=== PATIENT | female | born 1950 | race Caucasian/White ===

== ENCOUNTER 2021-07-11 11:39 | Emergency (ER) | payer MEDICARE, SELFPAY ==
[2021-07-11 11:56] VITALS: BP 129/78; PULSE 92; RESP 12; TEMP 36.2; O2SAT 100
--- NOTE | 2021-07-11 12:23 | ED.URI ---
HPI - URI/Sore Throat General Chief Complaint: Upper Respiratory Infection Stated Complaint: sinus pressure/runny nose Time Seen by Provider: 07/11/21 12:26 Source: patient and RN notes reviewed Mode of arrival: ambulatory Limitations: no limitations History of Present Illness HPI Narrative: 71-year-old female presents with concern for 1 week history of sinus congestion, drainage, right facial pressure and pain, right ear pain. Reports she has been using Flonase and Claritin with little relief. She reports occasional cough, denies body aches, chills, sweats, fever, nausea, vomiting, diarrhea, shortness of breath. Reports she has been vaccinated for Covid and has had a booster. MD elicited complaint: nasal congestion Related Data Home Medications Medication Instructions Recorded Confirmed fludrocortisone mg 07/11/21 levothyroxine 07/11/21 prednisone 07/11/21 prednisone 07/11/21 simvastatin mg 07/11/21 Allergies Allergy/AdvReac Type Severity Reaction Status Date / Time codeine Allergy Unknown HALLUCINATI Verified 07/11/21 11:56 ONS Contrast Media Allergy Unknown ITCHY Uncoded 07/11/21 11:56 Review of Systems Review of Systems: CONSTITUTIONAL: Denies malaise, chills, sweats, or fever. EYES: Denies visual changes, redness, or discharge. ENT: Reports rhinorrhea, congestion, sinus pain, otalgia and scratchy throat. CARDIOVASCULAR: Denies chest pain, palpitations, or edema. RESPIRATORY: Reports cough. Denies dyspnea. GASTROINTESTINAL: Denies abdominal pain, nausea, vomiting, diarrhea SKIN: Denies rash or itching. MUSCULOSKELETAL: Denies myalgia. NEUROLOGIC: Denies headache. All systems reviewed & are unremarkable except as noted in HPI and below PMFSH Comments At time of signature, agree with nursing past medical, surgical, social and family history. There is no relevant family history pertinent to the presenting complaint Exam Narrative: GENERAL: Well-appearing, well-nourished, and in no acute distress. HEAD: Normocephalic EYES: PERRLA, conjunctivae clear ENT: Nares clear, turbinates erythematous, sinus tenderness. Mucous membranes moist. TM pearly michele with sharp light reflex bilaterally; no tragal tenderness. Oropharynx not erythematous without lesions. Tonsils not enlarged and without exudate, no drooling, no hoarseness, no trismus, uvula midline. NECK: Supple. No lymphadenopathy CHEST: Clear to auscultation, breath sounds equal. No wheezing, rhonchi, rales, or stridor. No respiratory distress, speaks in full sentences. HEART: Regular rate and rhythm. No murmur heard. SKIN: Warm, dry, no rash. NEURO: Alert and oriented x3. PSYCH: Normal mood and affect Course Course Emergency Course: Patient is aware of diagnosis, understands and agrees to treatment plan. Anticipatory guidance given. Patient agrees to follow-up as directed and is aware of reasons to seek care at the emergency department. Portions of this record may have been created with voice recognition software Vital Signs Vital signs: Vital Signs Temperature 97.1 F L 07/11/21 11:56 Pulse Rate 92 07/11/21 11:56 Respiratory Rate 12 07/11/21 11:56 Blood Pressure 129/78 07/11/21 11:56 Pulse Oximetry 100 07/11/21 11:56 Temperature 97.1 F L 07/11/21 11:56 Pulse Rate 92 07/11/21 11:56 Respiratory Rate 12 07/11/21 11:56 Blood Pressure 129/78 07/11/21 11:56 Pulse Oximetry 100 07/11/21 11:56 Reviewed. MDM - URI/Sore Throat MDM Narrative Medical decision making narrative: Differential diagnosis considered: Driscoll virus, strep pharyngitis, allergic rhinitis, upper respiratory tract infection, sinusitis, rhinosinusitis, nasopharyngitis. viral pharyngitis, otitis media, otitis externa, pneumonia, bronchitis, viral cough syndrome, viral syndrome, and influenza. Exam findings show no acute concerns or changes; patient is non-toxic appearing and is in no distress. Patient is appropriate for outpatient treatment and follow-u
== END 2021-07-11 12:44 | disposition home or self-care (01) ==
PROVIDERS: Emergency Provider Nurse Practitioner; PCP Internal Medicine
DX: J01.90 Acute sinusitis, unspecified (principal); E78.00 Pure hypercholesterolemia, unspecified; Z96.653 Presence of artificial knee joint, bilateral; Z96.641 Presence of right artificial hip joint; E03.9 Hypothyroidism, unspecified; E27.1 Primary adrenocortical insufficiency
CPT/HCPCS: 99211; G0463

== ENCOUNTER → 2021-09-24 13:28 | Outpatient (CLI) | payer MEDICARE, SELFPAY ==
--- NOTE | ~2021-09-24 | MM_ITS ---
EXAMINATION: MM screening ap[facility] BI w dorys HISTORY: Screening TECHNIQUE: Craniocaudal and mediolateral oblique 3-D tomosynthesis images were obtained and synthetic 2-D images were generated. CAD analysis was submitted and interpreted. COMPARISON: 07/30/2019 BREAST PARENCHYMAL COMPOSITION: The breasts are heterogeneously dense, which may obscure small masses . FINDINGS: There is no evidence of suspicious mass, calcification, or architectural distortion to sugg est malignancy in either breast. There has been no suspicious interval change. IMPRESSION: 1. No mammographic evidence of malignancy. 2. Recommend routine screening mammography in one year. BI-RADS Category 1: Negative Reviewed, dictated and finalized at location A. RAM FACILITATOR
--- NOTE | ~2021-09-24 | DEXA_ITS ---
Bone Density Report Name: ABDON GOODSON Age: 71 Sex: Female Ethnicity: White Date of : 1950 Indication: postmenopausal; screening for osteoporosis; history of glucocorticoids; Referring Provider: Joon, Tonja Narayanan Study: Bone densitometry was performed. Exam Date: September 24, 2021 Accession number: [id number] Bone Density: Region BMD T-score Z-score Classification AP Spine (L1-L4) 0.984 -0.6 1.5 Normal Femoral Neck (Left) 0.742 -1.0 0.8 Normal Total Hip (Left) 0.821 -1.0 0.5 Normal World Health Organization criteria for BMD impression classify patients as: Normal (T-score at or above -1.0), Osteopenia (T-score between -1.0 and -2.5), or Osteoporosis (T-score at or below -2.5). 10-year Fracture Risk: FRAX not reported because: All T-scores for Spine Total, Hip Total, Femoral Neck at or above -1.0 Previous Exams: Region Exam Age BMD T-score BMD Change BMD Change Date g/cm2 vs Baseline vs Previous AP Spine(L1-L4) 09/24/2021 71 0.984 -0.6 0.003 0.036* 06/10/2017 66 0.948 -0.9 -0.033* -0.033* 04/06/2010 59 0.981 -0.6 Total Hip(Left) 09/24/2021 71 0.821 -1.0 -0.085* -0.009 07/30/2019 69 0.830 -0.9 -0.076* -0.041* 06/10/2017 66 0.871 -0.6 -0.035* -0.035* 04/06/2010 59 0.906 -0.3 *Denotes significance at 95% confidence level, LSC for AP Spine = 0.022 g/cm2, LSC for Total Hip = 0.027 g/cm2 Clinical Information Provided by Patient: Has taken Glucocorticoids Has used the following medications: Vitamin D, Calcium Patient maximum height was 65 Menopause Age: 53 Drinks caffeinated beverages Onset of menses at age 15 Number of children 3 Impression: The patient has normal bone mass. The patient has risk factors, including: history of glucocorticoid therapy. No significant bone loss was observed. Discussion: BONE DENSITY IS ABOVE THE MINIMUM DESIRABLE LEVEL AT ALL SKELETAL SITES TESTED. This patient?s bone mineral density is above the minimum desirable level (T-score -1.0 or better) at all sites measured. The patient should follow a healthful lifestyle (good nutrition with adequate calcium and vitamin D, and appropriate weight-bearing exercise). Follow-Up: Consider repeating this study in 5 years or sooner if there is some new clinical indication. Reported by: ELAYNE on 09/24/2021 2:17:00 PM. Reviewed, dictated and finalized at location ANikole LICEA
== END ==
PROVIDERS: Visit Provider Nurse Practitioner Obstetrics & Gynecology
DX: Z12.31 Encounter for screening mammogram for malignant neoplasm of breast (principal); Z78.0 Asymptomatic menopausal state
CPT/HCPCS: 77063; 77067; 77080

== ENCOUNTER 2022-10-30 12:07 | Emergency (ER) | payer MEDICARE, SELFPAY ==
[2022-10-30 12:15] VITALS: BP 113/77; PULSE 108; RESP 18; TEMP 36.5; O2SAT 98
[2022-10-30 12:16] VITALS: BP 113/77; PULSE 108; RESP 18; TEMP 36.5; O2SAT 98
--- NOTE | 2022-10-30 12:35 | ED.SKABFB ---
HPI - Skin/Abscess/Foreign Bdy General Chief complaint: Skin/Abscess/Foreign Body Stated complaint: HIVES Time Seen by Provider: 10/30/22 12:35 Source: patient, RN notes reviewed and old records reviewed Mode of arrival: ambulatory Limitations: no limitations History of Present Illness HPI narrative: 72 year old female presents to [facility] care with complaints of intermittent large red raised rash noted to upper thighs and mid thigh region for the past 2 weeks that patient thinks are hives. Patient reports that rash is itchy has been taking Claritin and Zyrtec with no improvement. Patient reports no new medications, foods, soaps, lotions or laundry products. Patient denies any shortness of breath or any difficulty swallowing. Patient has been COVID vaccinated and has had flu shot. MD complaint: rash Onset (ago): week(s) (2) Location: LLE and RLE Severity scale (1-10): 4 Treatments prior to arrival: other (claritin and zyrtec) Related Data Home Medications Medication Instructions Recorded Confirmed fludrocortisone 0.1 mg tablet 0.1 mg PO DAILY 07/11/21 07/11/21 levothyroxine 100 mcg tablet 100 mcg PO DAILY 07/11/21 07/11/21 simvastatin 20 mg tablet 20 mg PO DAILY 07/11/21 07/11/21 hydrocortisone 5 mg tablet mg 10/30/22 Allergies Allergy/AdvReac Type Severity Reaction Status Date / Time codeine Allergy Unknown HALLUCINATI Verified 10/30/22 12:14 ONS Contrast Media Allergy Unknown ITCHY Uncoded 10/30/22 12:14 Review of Systems Review of Systems: CONSTITUTIONAL: Denies fever, chills, or sweats. CARDIOVASCULAR: Denies chest pain, palpitations, or edema. RESPIRATORY: Denies cough or dyspnea. SKIN: Reports red raised blotchy rash noted on upper thighs and mid thighs MUSCULOSKELETAL: Denies joint pain or myalgia. NEUROLOGIC: Denies headache, numbness, or weakness. All systems reviewed & are unremarkable except as noted in HPI and below PMFSH Past Medical History Medical History (Updated 11/01/22 @ 15:54 by aMría Singh NP) Addisons disease Elevated cholesterol Hypothyroid Surgical History Surgical History (Updated 11/01/22 @ 15:55 by María L. Samantha, CONTENT ARCHITECT) History of bilateral knee replacement History of right hip replacement Hx of thyroidectomy Social History Social History (Updated 11/01/22 @ 15:50 by María Singh NP) Smoking status: Never smoker Substance use type: does not use Living arrangements: with family Gender identity (if verbalized by the patient): Female Comments At time of signature, agree with nursing past medical, surgical, social and family history. There is no relevant family history pertinent to the presenting complaint Exam Narrative: GENERAL: Well-appearing, well-nourished, and in no acute distress. HEAD: Normocephalic, atraumatic. EYES: PERRLA, conjunctivae clear, and EOMI. ENT: Mucous membranes moist. Oropharynx without edema, erythema or lesions. NECK: Supple. No lymphadenopathy CHEST: Clear to auscultation. No respiratory distress. HEART: Regular rate and rhythm. SKIN: Warm, dry.? Patches of raised blotchy red rash noted on bilateral thighs and hip areas is itchy and does jessika. NEURO:? Alert and oriented x3. PSYCH: Normal mood and affect Course Course Emergency Course: Patient is aware of diagnosis, understands and agrees to treatment plan.? Anticipatory guidance given.? Patient agrees to follow-up as directed and is aware of reasons to seek care at the emergency department. Portions of this record may have been created with voice recognition software Level of Care: Express Care Visit Vital Signs Vital signs: Vital Signs Temperature 36.5 C 10/30/22 12:15 Pulse Rate 108 H 10/30/22 12:15 Respiratory Rate 18 10/30/22 12:15 Blood Pressure 113/77 10/30/22 12:15 Pulse Oximetry 98 10/30/22 12:15 Temperature 36.5 C 10/30/22 12:16 Pulse Rate 108 H 10/30/22 12:16 Respiratory Rate 18 10/30/22 12:16 Blo
== END 2022-10-30 12:57 | disposition home or self-care (01) ==
PROVIDERS: Emergency Provider Registered Nurse
DX: L25.9 Unspecified contact dermatitis, unspecified cause (principal); E27.1 Primary adrenocortical insufficiency; E78.00 Pure hypercholesterolemia, unspecified; E03.9 Hypothyroidism, unspecified
CPT/HCPCS: 99213; G0463

== ENCOUNTER 2024-05-09 16:16 | Emergency (ER) | payer MEDICARE, SELFPAY ==
--- NOTE | ~2024-05-09 | XR_ITS ---
XR abdomen/kub 1V 05/09/2024 16:57 INDICATION: Fever TECHNIQUE: KUB COMPARISON: None FINDINGS: Bowel gas pattern is normal. Moderate colonic fecal loading. There is no evidence of free a ir, mass, organomegaly, ascites or obstruction. No abnormal calculi are seen. The bones appear inta ct. There is a right total hip arthroplasty. IMPRESSION: 1: No acute abdominal abnormality identified. Reviewed, dictated and finalized at location B.
--- NOTE | ~2024-05-09 | XR_ITS ---
EXAMINATION: XR chest 1V portable DATE: 05/09/2024 17:43 INDICATION: Hypoxia. TECHNIQUE: A single frontal view of the chest was obtained. COMPARISON: None. FINDINGS: There is mild elevation of right hemidiaphragm. No pneumonia, pleural effusion, or pneumoth orax. The heart size is normal. There is a total right shoulder arthroplasty. There are surgical clip s in the neck. IMPRESSION: 1. Mild elevation of right hemidiaphragm. Reviewed, dictated and finalized at location A.
[2024-05-09 16:19] VITALS: BP 138/75; PULSE 118; RESP 37; TEMP 38.5; O2SAT 89
[2024-05-09 16:28] VITALS: O2SAT 93
--- NOTE | 2024-05-09 16:28 | PC.NURSE ---
patient placed on 2L NC at this time.
[2024-05-09] MEDS: HYDROCORTISONE SODIUM SUCCINATE 100 MG/2 ML VIAL IV PUSH (16:51)
[2024-05-09] MEDS: SODIUM CHLORIDE 0.9% IV 1,000 ML 999 ML IV CONT (16:51)
--- NOTE | 2024-05-09 17:16 | ED.FEVER ---
HPI - Fever General Chief Complaint: Fever Stated Complaint: SOB Time Seen by Provider: 05/09/24 16:31 History of Present Illness HPI Narrative: 73-year-old female presents emergency department for evaluation of persistent nausea and vomiting. Patient states she did test positive for COVID a few weeks ago but states she has been feeling improved. Patient reports her developed nausea vomiting diarrhea on Tuesday. Patient began developing nausea and vomiting today. Patient denies any chest pain but does have some hypoxia Related Data Home Medications Medication Instructions Recorded Confirmed fludrocortisone 0.1 mg tablet 0.1 mg PO DAILY 07/11/21 07/11/21 levothyroxine 100 mcg tablet 100 mcg PO DAILY 07/11/21 07/11/21 simvastatin 20 mg tablet 20 mg PO DAILY 07/11/21 07/11/21 hydrocortisone 5 mg tablet mg 10/30/22 Allergies Allergy/AdvReac Type Severity Reaction Status Date / Time codeine Allergy Unknown HALLUCINATI Verified 10/30/22 12:14 ONS acetaminophen AdvReac Dizziness Verified 05/09/24 16:26 [From Darvocet-N] propoxyphene AdvReac Dizziness Verified 05/09/24 16:26 [From Darvocet-N] Contrast Media Allergy Unknown ITCHY Uncoded 10/30/22 12:14 Review of Systems Review of Systems: All systems reviewed & are unremarkable except as noted in HPI and below PMFSH Past Medical History Medical History (Updated 05/10/24 @ 00:00 by Michele Zaldivar) Addisons disease Elevated cholesterol Hypothyroid Surgical History Surgical History (Updated 11/01/22 @ 15:55 by María Singh NP) History of bilateral knee replacement History of right hip replacement Hx of thyroidectomy Social History Social History (Updated 11/01/22 @ 15:50 by María Singh NP) Smoking status: Never smoker Substance use type: does not use Living arrangements: with family Gender identity (if verbalized by the patient): Female Exam Narrative: APPEARANCE: Well appearing, no pain, no distress, well-nourished. HEAD: normocephalic, atraumatic. EYES: PERRLA/EOMI, conjunctivae clear. NOSE: Normal no drainage EARS:TMS clear with good light reflex. THROAT: Pharynx clear, no exudate. NECK: Supple. No adenopathy, no masses. RESPIRATORY: Airway patent, respirations nonlabored. Clear to auscultation bilaterally, no rales, rhonchi, wheezing. CARDIOVASCULAR: Regular rate and rhythm without murmurs rubs or gallops. ABDOMINAL: Soft, nontender, nondistended, normal bowel sounds MUSCULOSKELETAL: Moves all extremities. Strength/ROM intact, No edema, No calf tenderness. NEURO: Alert. Cranial nerves II through XII intact. Grossly intact SKIN: Warm, dry. Normal Color Course AIRLINE TICKET AGENT/PA Physician Supervision On re-evaluation patient does feel significantly improved and did declined admission. Patient's fever was resolved heart rate was improved. Vital Signs Vital signs: Vital Signs Temperature 101.3 F H 05/09/24 16:19 Pulse Rate 118 H 05/09/24 16:19 Respiratory Rate 37 H 05/09/24 16:19 Blood Pressure 138/75 05/09/24 16:19 Pulse Oximetry 89 L 05/09/24 16:19 Oxygen Delivery Room Air 05/09/24 16:19 Temperature 99.6 F 05/09/24 20:11 Pulse Rate 94 05/09/24 20:11 Respiratory Rate 19 05/09/24 20:11 Blood Pressure 118/73 05/09/24 20:11 Pulse Oximetry 97 05/09/24 20:11 Oxygen Delivery Room Air 05/09/24 16:19 MDM - Fever MDM Narrative Medical decision making narrative: 73-year-old female presents emergency department for evaluation for generally feeling ill with associated nausea and vomiting. Patient is afebrile with no leukocytosis and a stable hemoglobin of 14. Patient has no significant electrolyte abnormalities. UA was concerning for urinary tract infection, urine culture was ordered. Patient does have history [place]'s and does take steroids. Patient was treated with 100 mg of hydrocortisone and a L of IV fluid. On re-evaluation patient states she does feel si
[2024-05-09 17:21] LABS: Basophils Percent Auto 0.1 % (0.2-1.2); Eosinophils Absolute Auto 0.1 K/mm3 (0-0.3); Eosinophils Percent Auto 0.9 % (0-4.4); Hematocrit 41.4 % (37.0-47.0); Immature Granulocyte Absolute 0.03 K/mm3 (0.00-0.031); Immature Granulocyte Percent A 0.4 % (0-0.5); Lymphocytes Absolute Auto 0.56 K/mm3 (0.9-3.2); Lymphocytes Percent Auto 7.2 % (18.3-44.2); Mean Corpuscular HGB Conc 33.8 g/dl (32-36); Mean Corpuscular Hemoglobin 33.3 pg (26-34); Mean Corpuscular Volume 98.3 fl (80-100); Mean Platelet Volume 9.2 fl (7.4-10.4); Monocytes Absolute Auto 0.4 K/mm3 (0.1-0.6); Monocytes Percent Auto 5.6 % (2.6-8.5); Neutrophils Absolute Auto 6.7 K/mm3 (1.3-6.7); Neutrophils Percent Auto 85.8 % (45.5-73.1); Platelet Count Result 234 k/mm3 (150-375); Red Blood Count 4.21 M/mm3 (4.2-5.4); Red Cell Distribution Width 13.9 % (11.5-14.5); White Blood Count 7.8 K/mm3 (4.5-10.0)
[2024-05-09] MEDS: IBUPROFEN 400 MG TABLET 800 MG PO (17:32)
[2024-05-09 17:34] LABS: Alanine Aminotransferase 22 U/L (6-35); Albumin Level 3.7 g/dL (3.5-5.1); Alkaline Phosphatase 51 U/L (38-126); Anion Gap 9 mmol/L (4-12); Aspartate Amino Transferase 33 U/L (14-36); Bilirubin,Total 0.5 mg/dL (0.2-1.3); Blood Urea Nitrogen 20 mg/dL (7-17); Calcium 8.5 mg/dL (8.4-10.2); Carbon Dioxide 25 mmol/L (22-30); Chloride 105 mmol/L (98-107); Estimated CRCL calculation 45 ml/min; Estimated Glomerular Filt Rate > 60; Glucose 125 mg/dL (65-110); Potassium 3.6 mmol/L (3.4-5.0); Sodium 139 mmol/L (137-145)
[2024-05-09 17:35] LABS: Lactic Acid Reflex 1.9 mmol/L (0.7-2.0)
[2024-05-09 17:44] LABS: Prothrombin Time 13.7 Seconds (11.1-14.7)
[2024-05-09 17:45] LABS: Partial Thromboplastin Time 28.7 Seconds (22.3-36.8)
[2024-05-09 17:57] LABS: Influenza A QL RT-PCR Negative (Negative); Influenza B QL RT-PCR Negative (Negative); RSV RNA, RT-PCR Negative (Negative); SARS-CoV-2 RNA PCR Negative (Negative)
[2024-05-09 18:04] LABS: Add Urine Microscopic? YES; Appearance Urine Clear (Clear); Bacteria Urine 4+ /hpf; Bilirubin Urine Negative (Negative); Blood Urine Trace (Negative); Color Urine Yellow (Yellow); Glucose Urine UA Negative (Negative); Ketones Urine Trace mg/dL (Negative); Leukocyte Esterase Ur 2+ LEU/UL (Negative); Nitrate Urine Positive (Negative); Non Pathogenic Casts 0-2; Protein Urine Negative (Negative); RBC Urine 0-2 /hpf (0-2); Specific Grav Ur 1.015 (1.001-1.035); Squamous Epithelial Cell Urine None Seen /hpf (Few); Urobilinogen Urine 0.2 mg/dL (<2.0); WBC Urine 21-50 /hpf (0-3)
[2024-05-09 18:11] VITALS: BP 125/69; PULSE 97; RESP 18; TEMP 37.8; O2SAT 98
[2024-05-09 20:11] VITALS: BP 118/73; PULSE 94; RESP 19; TEMP 37.6; O2SAT 97
--- NOTE | 2024-05-18 13:38 | PC.NURSE ---
LATE ENTRY This note is being entered to document information to the patient's record. Ceftriaxone stopped at 1930 on 05/09/24
== END 2024-05-09 20:12 | disposition home or self-care (01) ==
PROVIDERS: Emergency Provider Emergency Medicine
DX: E27.1 Primary adrenocortical insufficiency (principal); N12 Tubulo-interstitial nephritis, not specified as acute or chronic; E78.00 Pure hypercholesterolemia, unspecified; E89.0 Postprocedural hypothyroidism; Z96.653 Presence of artificial knee joint, bilateral; Z96.641 Presence of right artificial hip joint; Z86.16 Personal history of COVID-19
CPT/HCPCS: 36415; 71045; 74018; 80053; 81001; 83605; 85025; 85610; 85730; 87077; 87086; 87088; 87186; 87637; 96361; 96365; 96375; 99284; A9270; J0696; J1720; J7030

== ENCOUNTER 2024-08-31 11:32 | Emergency (ER) | payer MEDICARE, SELFPAY ==
[2024-08-31 11:59] VITALS: BP 141/75; PULSE 85; RESP 16; TEMP 36.4; O2SAT 99
--- NOTE | 2024-08-31 13:37 | ED.URI ---
HPI - URI/Sore Throat General Chief Complaint: Upper Respiratory Infection Stated Complaint: Cold Symptoms Time Seen by Provider: 08/31/24 13:30 Source: patient, RN notes reviewed and old records reviewed Mode of arrival: ambulatory Limitations: no limitations History of Present Illness HPI Narrative: 74-year-old female presents to [facility] with complaints of 2 week duration of illness which started out as sinus congestion drainage and then has progressed to frequent cough. Patient states initially she had low-grade fevers of 99 to 100F was taking Tylenol. Patient reports that she has had this cough for the past 4-5 days which is productive in the morning. Patient reports that she has some muscle soreness in upper abdomen from all the coughing. Patient has been taking plain Mucinex and Tylenol for her symptoms. MD elicited complaint: cough Pertinent past history: other ([place]'s disease) Onset (ago): week(s) (2 weeks ill 4-5 days of cough) Consistency: progressively worsening Severity: moderate Pain scale (0-10): 3 Description of mucous: clear Able to tolerate fluids by mouth: Yes Treatments prior to arrival: acetaminophen and other (Mucinex) Related Data Home Medications ?Medication ?Instructions ?Recorded ?Confirmed ?Last Taken ?Type fludrocortisone 0.1 mg tablet 0.1 mg PO DAILY 07/11/21 07/11/21 Unknown History levothyroxine 100 mcg tablet 100 mcg PO DAILY 07/11/21 07/11/21 Unknown History simvastatin 20 mg tablet 20 mg PO DAILY 07/11/21 07/11/21 Unknown History hydrocortisone 5 mg tablet mg 10/30/22 Unknown History Allergies Allergy/AdvReac Type Severity Reaction Status Date / Time codeine Allergy Unknown HALLUCINATI Verified 10/30/22 12:14 ONS dextromethorphan AdvReac Mild Other Verified 08/31/24 13:11 acetaminophen (From AdvReac Dizziness Verified 05/09/24 16:26 Darvocet-N) propoxyphene (From AdvReac Dizziness Verified 05/09/24 16:26 Darvocet-N) Contrast Media Allergy Unknown ITCHY Uncoded 10/30/22 12:14 Review of Systems Review of Systems: CONSTITUTIONAL:REports some malaise, no recent chills, sweats, or fever. EYES: Denies visual changes, redness, or discharge. ENT: Reports rhinorrhea, congestion, sinus pain,no otalgia and no sore throat. CARDIOVASCULAR: Denies chest pain, palpitations, or edema. RESPIRATORY: Reports cough at times productive.? Denies dyspnea. GASTROINTESTINAL: Denies abdominal pain, nausea, vomiting, diarrhea SKIN: Denies rash or itching. MUSCULOSKELETAL: Denies myalgia. NEUROLOGIC: Denies headache. All systems reviewed & are unremarkable except as noted in HPI and below PMFSH Past Medical History Medical History (Updated 09/02/24 @ 17:48 by María Singh NP) Arthritis Hypothyroid Elevated cholesterol Addisons disease Surgical History Surgical History (Updated 11/01/22 @ 15:55 by María Singh NP) Hx of thyroidectomy History of right hip replacement History of bilateral knee replacement Social History Social History (Updated 11/01/22 @ 15:50 by María Singh NP) Smoking status: Never smoker Substance use type: does not use Living arrangements: with family Gender identity (if verbalized by the patient): Female Comments At time of signature, agree with nursing past medical, surgical, social and family history. There is no relevant family history pertinent to the presenting complaint Exam Narrative: GENERAL: Well-appearing, well-nourished, and in no acute distress. HEAD: Normocephalic EYES: PERRLA, conjunctivae clear ENT: Nares clear, turbinates edematous and erythematous, clear discharge. Mucous membranes moist. TM pearly michele with dull light reflex bilaterally; no tragal tenderness. Oropharynx erythematous without lesions. Tonsils not enlarged and without exudate, no drooling, no hoarseness, no trismus, uvula midline.post nasal congestion NECK: Supple. No lymphadenopathy CHEST: Scattered wheezes noted on auscultation, breath sounds equal. + wheezing,no rhonchi, rales, or stridor. No respiratory distress, speaks in full sentences. productive cough at times other joyner dry and hacking SAO2 99% on room air HEART: Regular rate and rhythm. No murmur heard. SKIN: Warm, dry, no rash. NEURO: Alert and oriented x3. PSYCH: Normal mood and affect Course Course Emergency Course: Patient is aware of diagnosis, understands and agrees to treatment plan.? Anticipatory guidance given.? Patient agrees to follow-up as directed and is aware of reasons to seek care at the emergency department. Portions of this record may have been created with voice recognition software Level of Care: Express Care Visit Vital Signs Vital signs: Vital Signs Temperature 36.4 C L 08/31/24 11:59 Pulse Rate 85 08/31/24 11:59 Respiratory Rate 16 08/31/24 11:59 Blood Pressure 141/75 H 08/31/24 11:59 Pulse Oximetry 99 08/31/24 11:59 Temperature 36.4 C L 08/31/24 11:59 Pulse Rate 85 08/31/24 11:59 Respiratory Rate 16 08/31/24 11:59 Blood Pressure 141/75 H 08/31/24 11:59 Pulse Oximetry 99 08/31/24 11:59 Oxygen Delivery Room Air 08/31/24 12:35 Reviewed MDM - URI/Sore Throat MDM Narrative Medical decision making narrative: Differential diagnosis considered: Driscoll virus, strep pharyngitis, allergic rhinitis, upper respiratory tract infection, sinusitis, rhinosinusitis, nasopharyngitis. viral pharyngitis, otitis media, otitis externa, pneumonia, bronchitis, viral cough syndrome, viral syndrome, and influenza.? Exam findings show no acute concerns or changes; patient is non-toxic appearing and is in no distress.? Patient is appropriate for outpatient treatment and follow-up. Differential Diagnosis Differential diagnosis: Likely upper respiratory infection, sinusitis, viral infection, bronchitis and other (acute cough) Medical Records Attestation: I reviewed the patient's medical records. Lab Data Attestation: I reviewed the patient's lab results. Critical Care Time Critical Care Time Critical Care Time: No Discharge Plan Discharge Clinical Impression: Bronchitis Patient Disposition: Home, Self-Care Condition: Stable Instructions: Antibiotic Form, Acute Bronchitis (ED) Additional Instructions: Increase fluids especially juices and water [id number] cough and cold medicine of your choice for your symptoms Tylenol or ibuprofen for any fever or pain Zyrtec Claritin or Joseline include Coricidin brand decongestant Continue your inhaler/nebulizer as directed Steroids as directed--take with food heat to the face 20-30 minutes 4-6 times a day for pain Salt water gargles, throat lozenges or throat sprays as desired antibiotic as prescribed complete all doses If your symptoms persist, change or worsen significantly before you can contact your personal physician then please, without delay, go to the emergency department for further evaluation. Follow-up with PCP in 7-10 days or sooner if needed Follow up with PCP soon in regards to your blood pressure which is elevated above threshold for referral. Blood pressure above 120/80 may indicate pre-hypertension.141/75 Patient Language: Lithuanian Prescriptions: New azithromycin 250 mg tablet See Rx Instructions .ROUTE .COMPLEX Qty: 6 0RF Rx Instructions: For 250 mg dose pack: take 500 mg today (day 1), then 250 mg for 4 days (days 2-5) benzonatate 200 mg capsule 200 mg PO TID PRN (Reason: cough) Qty: 20 0RF prednisone 20 mg tablet 20 mg PO BID Qty: 10 0RF Rx Instructions: am and early PM albuterol sulfate 90 mcg/actuation HFA aerosol inhaler 2 puff inhalation QID PRN (Reason: shortness of breath or wheezing) Qty: 6.7 0RF No Action levothyroxine 100 mcg tablet 100 mcg PO DAILY simvastatin 20 mg tablet 20 mg PO DAILY fludrocortisone 0.1 mg tablet 0.1 mg PO DAILY hydrocortisone 5 mg tablet prednisone 10 mg tablet 10 mg PO DIRECTED Qty: 21 0RF Rx Instructions: see taper instructions 6 tabs day 1, 5 tabs day 2, 4 tabs day 3, 3 tabs day 4, 2 tabs day 5, 1 tab day 6 triamcinolone acetonide 0.1 % ointment 1 applic topical BID Qty: 80 0RF famotidine [Pepcid] 20 mg tablet 20 mg PO DAILY Qty: 30 0RF cephalexin 500 mg capsule 500 mg PO Q8H 7 Days Qty: 21 0RF ondansetron 4 mg tablet,disintegrating 4 mg PO Q8H PRN (Reason: nausea and vomiting) Qty: 20 0RF Follow-up/Referrals: PHYSICIAN,TUBE STATION ATTENDANT [Primary Care Provider] - Time of Disposition: 13:54 Quality [place]raw[place] Coma Scale Eyes: Open Verbal: Oriented and Alert Motor: Follows Commands Stefanie Coma Total Score: 15
== END 2024-08-31 14:01 | disposition home or self-care (01) ==
PROVIDERS: Emergency Provider Registered Nurse
DX: J40 Bronchitis, not specified as acute or chronic (principal); E03.9 Hypothyroidism, unspecified
CPT/HCPCS: 99213; G0463